=== PATIENT | male | born 1975 | race Caucasian/White ===

== ENCOUNTER 2023-01-23 04:56 | Day surgery (SDC) | payer OTHER ==
[2023-01-22 13:23] VITALS: BMI 30.2
[2023-01-23 13:21] VITALS: TEMP 97.5
[2023-01-23 14:16] VITALS: BP 118/74; PULSE 63; RESP 16
== END 2023-01-23 14:17 | disposition home or self-care (01) ==
LOC: JASU-ENDO 04:56
PROVIDERS: ATTEND Student in an Organized Health Care Education/Training Program
PROC: 0DBN8ZX Excision of Sigmoid Colon, Via Natural or Artificial Opening Endoscopic, Diagnostic (ICD-10-PCS; 2023-01-23)
PROC: 0DBM8ZX Excision of Descending Colon, Via Natural or Artificial Opening Endoscopic, Diagnostic (ICD-10-PCS; principal; 2023-01-23 12:00)
DX: Z12.11 Encounter for screening for malignant neoplasm of colon (principal); D12.4 Benign neoplasm of descending colon
CPT/HCPCS: 88305-TC